=== PATIENT | male | born 1975 | race Caucasian/White ===

== ENCOUNTER 2016-09-27 07:48 | Day surgery (SDC) | payer MEDICAID ==
[2016-09-27] MEDS ORDERED: Lactated Ringer's 500 ML IV ONE (08:16)
[2016-09-27 08:25] VITALS: TEMP 96.9
[2016-09-27] MEDS ORDERED: Propofol 10 mg/ml Inj (20 ML) ONE ×2 (09:32→10:10)
[2016-09-27 10:50] VITALS: BP 125/58; PULSE 91; RESP 28; O2SAT 96
== END 2016-09-27 11:38 | disposition home or self-care (01) ==
LOC: H.ENDO 07:48
PROVIDERS: ATTEND Internal Medicine Gastroenterology
DX: Z12.11 Encounter for screening for malignant neoplasm of colon (principal); I10 Essential (primary) hypertension; K57.30 Diverticulosis of large intestine without perforation or abscess without bleeding; R12 Heartburn; K29.50 Unspecified chronic gastritis without bleeding; B44.9 Aspergillosis, unspecified; K21.0 Gastro-esophageal reflux disease with esophagitis; B37.81 Candidal esophagitis